=== PATIENT | female | born 1975 | race Caucasian/White ===

== ENCOUNTER → 2016-11-19 | Outpatient (CLI) | payer OTHER | LOC: RAD 14:17 | DX: M53.3 Sacrococcygeal disorders, not elsewhere classified (principal) ==

== ENCOUNTER 2022-02-16 18:21 | Emergency (ER) | payer OTHER ==
[~2022-02-16 18:21] MED LIST: DHA PO; LOPID600 MG PO; PROBIOTIC1 EAC3 PO
[2022-02-16] MEDS ORDERED: VITAMIN D310 MC2 (20:12)
[2022-02-16] MEDS ORDERED: STROVITE FORTE1 TAB (20:12)
[2022-02-16] MEDS ORDERED: VENLAFAXINE HYD75 MG PO (20:13)
[2022-02-16] MEDS ORDERED: MELOXICAM15 MG PO (20:13)
[2022-02-16 20:42] VITALS: BP 140/97
== END 2022-02-16 20:43 | disposition home or self-care (01) ==
LOC: ED 18:21
DX: S96.911A Strain of unspecified muscle and tendon at ankle and foot level, right foot, initial encounter (principal); W18.40XA Slipping, tripping and stumbling without falling, unspecified, initial encounter; W22.8XXA Striking against or struck by other objects, initial encounter
CPT/HCPCS: 15970; L4386

== ENCOUNTER → 2024-05-11 | Outpatient (CLI) | payer OTHER ==
[~2024-05-11] MED LIST changes: +MELOXICAM15 MG PO; +STROVITE FORTE1 TAB; +VENLAFAXINE HYD75 MG PO; +VITAMIN D310 MC2
== END ==
LOC: RAD 08:21
DX: M19.011 Primary osteoarthritis, right shoulder (principal)